=== PATIENT | male | born 1960 | race African-American/Black ===

== ENCOUNTER 2024-03-09 17:14 | Inpatient (IN) | payer MEDICARE, MEDICAID ==
[~2024-03-09] VITALS: Ht 172.7 cm; Wt 64.0 kg
[~2024-03-09 17:14] MED LIST: ATROPINE SULFATE 1MG/10ML SYR ONE
[2024-03-09] MEDS ORDERED: NOREPINEPHRINE 8MG/250ML PMX 250 ML IV ONE (17:18)
[2024-03-09 17:25] VITALS: PULSE 148; RESP 14
[2024-03-09] MEDS: NOREPINEPHRINE 8MG/250ML PMX 250 ML IV PRN (17:27)
[2024-03-09] MEDS ORDERED: PHENYLEPHRINE 50 MG in DEXT 5% WATER 245 ML IV STA (18:12)
[2024-03-09 18:17] LABS: BASOPHILS % 0.7 % (0.0-2.0); HEMATOCRIT. 35.6 % (42.0-52.0); HEMOGLOBIN. 11.2 g/dL (14.0-18.0); MEAN CORPUSCULAR HEMOGLOBIN 34.9 pg (28.0-32.0); MEAN CORPUSCULAR HGB CONC 31.4 g/dL (31.0-37.0); MEAN CORPUSCULAR VOLUME 111.1 fL (80.0-94.0); MEAN PLATELET VOLUME 8.9 fl (7.4-10.4); MONOCYTES % 4.2 % (2.0-8.0); NEUTROPHILS % 86.1 % (40.0-76.0); RED CELL DISTRIBUTION WIDTH 14.3 % (11.6-14.6); WHITE BLOOD COUNT 5.5 x1000/uL (4.5-11.0)
[2024-03-09 18:23] LABS: DIFFERENTIAL COMMENT 1
[2024-03-09 18:24] LABS: ADD RBC MORPHOLOGY YES; PLATELET 48 x1000/uL (130-400)
[2024-03-09 18:26] LABS: CHLORIDE 111 mEq/L (98-107); POTASSIUM 3.4 mEq/L (3.5-5.1); SODIUM 148 mEq/L (136-145)
[2024-03-09 18:27] LABS: CALCIUM 9.8 mg/dL (8.7-10.4); CARBON DIOXIDE 18 mEq/L (21-32)
[2024-03-09 18:32] VITALS: O2SAT 0
[2024-03-09 18:32] LABS: CREATININE 1.6 mg/dL (0.6-1.3); GLUCOSE 63 mg/dL (70-105); UREA NITROGEN BLOOD 10 mg/dL (9-23)
[2024-03-09] MEDS: PROPOFOL 10MG/ML 100ML 100 ML IV STA (18:32)
[2024-03-09 18:33] LABS: TROPONIN I HIGH SENSITIVITY 30 ng/L (3.0-53)
[2024-03-09 18:34] LABS: ALANINE AMINOTRANSFERASE 59 IU/L (10-49); ALBUMIN 2.7 g/dL (3.2-4.8); ASPARTATE AMINOTRANSFERASE 149 IU/L (<34); PROTEIN TOTAL 5.9 g/dL (6.0-8.3)
[2024-03-09 18:40] LABS: PLATELET ESTIMATE MARKEDLY DECREASED
[2024-03-09] MEDS: PHENYLEPHRINE 50 MG in DEXT 5% WATER 245 ML IV PRN (18:42)
[2024-03-09 18:54] LABS: LACTIC ACID 18.5 mmol/L (0.4-2.0)
[2024-03-09 19:19] LABS: BG BASE EXCESS -22.1 mmol/L (-2.0-2.0); BG CARBOXYHEMOGLOBIN 0.9 % (0.5-1.5); BG DEOXYHEMOGLOBIN 2.8 % (0.0-5.0); BG FRACTION INSPIRED OXYGEN 100; BG HCO3 ACT 7.9 mmol/L (22.0-26.0); BG METHEMOGLOBIN 0.2 % (0.0-1.5); BG OXYGEN SATURATION 97.2 % (92.0-98.5); BG OXYHEMOGLOBIN 96.1 % (94.0-97.0); BG PCO2 31.4 mmHg (35.0-45.0); BG PH 7.019 (7.350-7.450); BG PO2 142.4 mmHg (75.0-100.0); BG SAMPLE SITE RIGHT RADIAL; BG TOTAL HEMOGLOBIN 13.8 g/dL (12.0-18.0); BG VENT MODE VENT - AC
[2024-03-09] MEDS ORDERED: VASOPRESSIN 20 UNIT in SODIUM CHLORIDE 0.9% 99 ML IV STA (19:56)
[2024-03-09 20:35] VITALS: PULSE 110; RESP 30
[2024-03-09] MEDS: VASOPRESSIN 20 UNIT in SODIUM CHLORIDE 0.9% 99 ML IV STA (21:13)
[2024-03-09] MEDS ORDERED: VANCOMYCIN 1G PREMIX 200 ML IV ONE (22:00)
[2024-03-09] MEDS ORDERED: VANCOMYCIN 1G PREMIX 200 ML IV NR (22:00)
[2024-03-09] MEDS ORDERED: PANTOPRAZOLE 80 MG in SODIUM CHLORIDE 0.9% 100 ML IV SCH ×2 (22:15→23:00)
[2024-03-09] MEDS ORDERED: ACETAMINOPHEN 325MG TABLET PO PRN ×2 (22:15)
[2024-03-09] MEDS ORDERED: IPRATROPIUM/ALBUTEROL 0.5-3(2.5)MG/3ML NEB NEB PRN (22:15)
[2024-03-09] MEDS ORDERED: CLONIDINE 0.1MG TABLET PO PRN (22:15)
[2024-03-09] MEDS ORDERED: GUAIFENESIN 200MG/10ML SUGAR FREE UDC PO PRN (22:15)
[2024-03-09] MEDS ORDERED: MAGNESIUM/ALUMINUM HYDROXIDE/SIMETHICONE 30ML UDC PO PRN (22:15)
[2024-03-09] MEDS ORDERED: ONDANSETRON HCL 4MG/2ML INJ IV PRN (22:15)
[2024-03-09] MEDS ORDERED: NITROGLYCERIN 0.4MG TABLET SL SL PRN (22:15)
[2024-03-09] MEDS ORDERED: DOCUSATE SODIUM 100MG CAPSULE PO PRN (22:15)
[2024-03-09] MEDS: PIPERACILLIN/TAZO 3.375G/50ML 50 ML IV ONE (22:33)
[2024-03-09] MEDS ORDERED: MEROPENEM 1G/100ML 100 ML IV SCH (23:00)
[2024-03-09] MEDS ORDERED: IOHEXOL-350 100 ML BOTTLE ONE (23:11)
[2024-03-09] MEDS ORDERED: PHENYLEPHRINE 50MG/250ML PMX 250 ML IV PRN (23:21)
[2024-03-09] MEDS: SODIUM BICARBONATE 8.4% 1 MEQ/ML 50ML SYR IV NR (23:29)
[2024-03-09] MEDS: PANTOPRAZOLE 80 MG in SODIUM CHLORIDE 0.9% 100 ML IV SCH (23:29)
[2024-03-09] MEDS ORDERED: FENTANYL CITRATE 2,500 MCG in SODIUM CHLORIDE 0.9% 200 ML IV PRN (23:30)
[2024-03-09 23:32] LABS: IRON 79 ug/dL (65-175)
[2024-03-09 23:35] LABS: CREATINE KINASE 99 IU/L (46-171); CREATINE KINASE MB FRACTION 1.1 ng/mL (0.5-3.6); TOTAL IRON BINDING CAPACITY 191 ug/dl (250-425)
[2024-03-09 23:38] LABS: FOLIC ACID (FOLATE) SERUM > 20.00 ng/mL (>5.38); VITAMIN B12 SERUM 463 pg/mL (211-911)
[2024-03-09 23:39] LABS: T4 FREE 0.66 ng/dL (0.89-1.76); THYROID STIMULATING HORMONE 6.38 uIU/mL (0.55-4.78)
[2024-03-09 23:41] LABS: INR 1.4; PROTHROMBIN TIME 15.1 sec (9.6-11.0)
[2024-03-09] MEDS ORDERED: MIDAZOLAM 100MG/100ML PREMIX IV PRN (23:45)
[2024-03-09] MEDS ORDERED: OCTREOTIDE 1,000 MCG in SODIUM CHLORIDE 0.9% 98 ML IV SCH (23:45)
[2024-03-10] VITALS (23 sets, daily range): BP systolic 59–89; BP diastolic 27–66; PULSE 0–101; RESP 14–29; TEMP 90
[2024-03-10 00:31] LABS: CLARITY URINE CLOUDY (CLEAR); COLOR URINE YELLOW (YELLOW); GLUCOSE URINE NEGATIVE (NEGATIVE); KETONES URINE NEGATIVE (NEGATIVE); LEUKOCYTE ESTERASE URINE TRACE (NEGATIVE); NITRITE URINE NEGATIVE (NEGATIVE); OCCULT BLOOD URINE 3+ (NEGATIVE); PROTEIN URINE 3+ (NEGATIVE); SPECIFIC GRAVITY URINE 1.018 (1.005-1.030)
[2024-03-10 00:40] LABS: *AMPHETAMINES SCREEN URINE NEGATIVE (NEGATIVE)
[2024-03-10 00:41] LABS: *BARBITURATES SCREEN URINE NEGATIVE (NEGATIVE); *BENZODIAZEPINES SCREEN URINE NEGATIVE (NEGATIVE); *COCAINE SCREEN URINE NEGATIVE (NEGATIVE); CANNABINOID URINE SCREEN PRESUMPTIVE POSITIVE (NEGATIVE); ECSTASY MDMA SCREEN URINE NEGATIVE (NEGATIVE); METHADONE URINE SCREEN NEGATIVE (NEGATIVE); OPIATES URINE SCREEN NEGATIVE (NEGATIVE); PHENCYCLIDINE URINE SCREEN NEGATIVE (NEGATIVE)
[2024-03-10] MEDS: LACTATED RINGERS IV ONE (01:17)
[2024-03-10] MEDS: DEXT 5%/LACTATED RINGERS 1,000 ML IV SCH (01:18)
[2024-03-10] MEDS: SODIUM BICARBONATE 150MEQ in DEXTROSE 5% WATER 1000ML IV SCH (01:28)
[2024-03-10] MEDS: NOREPINEPHRINE 8MG/250ML PMX 250 ML IV PRN (01:31)
[2024-03-10] MEDS: DEXTROSE 50% WATER 50ML SYRINGE IV ONE (01:32)
[2024-03-10] MEDS ORDERED: EPINEPHRINE 10 MG in SODIUM CHLORIDE 0.9% 240 ML IV PRN (02:30)
[2024-03-10] MEDS ORDERED: DEXTROSE 50% WATER 50ML SYRINGE IV PRN (02:30)
[2024-03-10 02:37] LABS: HEMATOCRIT. 39.3 % (42.0-52.0); HEMOGLOBIN. 12.2 g/dL (14.0-18.0); MEAN CORPUSCULAR HEMOGLOBIN 34.2 pg (28.0-32.0); MEAN CORPUSCULAR HGB CONC 31.1 g/dL (31.0-37.0); MEAN PLATELET VOLUME 7.8 fl (7.4-10.4); RED BLOOD CELL COUNT 3.58 mill/uL (4.7-6.1); RED CELL DISTRIBUTION WIDTH 15.8 % (11.6-14.6)
[2024-03-10 02:47] LABS: POTASSIUM 3.4 mEq/L (3.5-5.1)
[2024-03-10 02:56] LABS: CALCIUM 6.7 mg/dL (8.7-10.4); CREATININE 1.7 mg/dL (0.6-1.3); DIFFERENTIAL COMMENT 1; PLATELET 11 x1000/uL (130-400)
[2024-03-10 03:36] LABS: SQUAMOUS EPITHELIAL CELL URINE FEW /lpf (RARE/1+)
[2024-03-10 03:38] LABS: BACTERIA URINE 3+; RBC URINE 50-100 /hpf (0-2)
[2024-03-10] MEDS ORDERED: BLOOD SUGAR DIAGNOSTIC STRIP TEST SCH (06:30)
[2024-03-10 06:37] LABS: PLATELET ESTIMATE MARKEDLY DECREASED; SMUDGE CELLS FEW
[2024-03-10 06:39] LABS: TOXIC VACUOLATION FEW
[2024-03-10] MEDS ORDERED: INSULIN LISPRO 100 UNITS/ML SUBCUT SCH (07:00)
[2024-03-10] MEDS ORDERED: PANTOPRAZOLE 80 MG in SODIUM CHLORIDE 0.9% 100 ML IV SCH (10:00)
[2024-03-10] MEDS ORDERED: VANCOMYCIN 750MG PREMIX 150 ML IV SCH (11:00)
== END 2024-03-10 02:57 | DRG 720 ==
LOC: ER 17:14 → EDBD 22:03 → MICUSO 22:03 → EDBEDREQTM 22:09 → EDBEDREQ 22:09
PROVIDERS: ADMIT Internal Medicine; ATTEND Internal Medicine
PROC: 5A1935Z Respiratory Ventilation, Less than 24 Consecutive Hours (ICD-10-PCS; 2024-03-09)
PROC: 0BH17EZ Insertion of Endotracheal Airway into Trachea, Via Natural or Artificial Opening (ICD-10-PCS; 2024-03-09)
PROC: 5A12012 Performance of Cardiac Output, Single, Manual (ICD-10-PCS; principal; 2024-03-10)
PROC: 30233K1 Transfusion of Nonautologous Frozen Plasma into Peripheral Vein, Percutaneous Approach (ICD-10-PCS; 2024-03-10)
PROC: 30233N1 Transfusion of Nonautologous Red Blood Cells into Peripheral Vein, Percutaneous Approach (ICD-10-PCS; 2024-03-10)
DX: A41.9 Sepsis, unspecified organism (principal); I46.9 Cardiac arrest, cause unspecified; J96.91 Respiratory failure, unspecified with hypoxia; N17.0 Acute kidney failure with tubular necrosis; G92.8 Other toxic encephalopathy; K92.2 Gastrointestinal hemorrhage, unspecified; R65.21 Severe sepsis with septic shock; D61.818 Other pancytopenia; I10 Essential (primary) hypertension; E87.0 Hyperosmolality and hypernatremia; E87.6 Hypokalemia; E44.0 Moderate protein-calorie malnutrition; M62.82 Rhabdomyolysis; R74.01 Elevation of levels of liver transaminase levels; Z68.21 Body mass index [BMI] 21.0-21.9, adult
CPT/HCPCS: 31500; 36415; 36600; 71045; 71275; 74174; 80048; 80053; 80305; 81003; 82375; 82550; 82553; 82607; 82746; 82805; 82962; 83036; 83540; 83550; 83605; 84145; 84439; 84443; 84484; 85025; 86850; 86900; 86920; 86927; 87077; 93005; 94002; 99291; J0461; J2185; J2354; J2370; J2470; J2543; J2704; J3490; J7050; J7060; J7070; P9016; P9017; Q9967